=== PATIENT | male | born 1935 | race Caucasian/White ===

== ENCOUNTER 2017-07-20 22:59 | Inpatient (IN) | payer MEDICARE, BC ==
--- NOTE | ~2017-07-20 | DS ---
Discharge Summary [facility] [address] [place]. [address] NAME: MELVINA JOVEL : 31 STATUS : DIS IN PAT#: [id number] AGE: 82 ADM/REG DATE : 07/21/17 MR#: [id number] REPORT SERV DATE: 07/23/17 DICTATED BY: STEVE ORTIZ DATE: 07/22/17 REPORT STATUS : Draft TRANSCRIBED BY: MODL DATE: 07/22/17 ADMISSION DATE: 07/21/2017 DISCHARGE DATE: 07/22/2017 DISCHARGE DIAGNOSES: 1. Weakness and falls most consistent with early stages of dementia. 2. Reported suicidal ideations. 3. Peripheral vascular disease, status post bilateral common femoral endarterectomy and patch angioplasty on 06/29/2017. 4. History of prostate cancer. 5. Possible depression. 6. Medication noncompliance. 7. History of pacer placement. PERTINENT IMAGING PERFORMED THIS ADMISSION: Carotid ultrasound 07/22/2017, impression: No evidence of significant carotid stenosis. Category 1, less than 50% narrowing bilaterally, left vertebral artery is not visualized. Echocardiogram 07/22/2017 found to be normal with the exception of mild diastolic dysfunction. HOSPITAL COURSE: Please refer to the history and physical of this patient by the dictating physician for full history of this patient. Briefly, this gentleman presented to the emergency department at the wishes of his family after having multiple falls at home over the past month as well as decreased appetite and ultimately reports of suicidal ideation. For the patient's weakness and falls, labs were found to be unremarkable and his neuro exam was unremarkable as well with the exception of a mild shuffling gait on exam. B12 and folate were checked and were not found to be the etiology of his weakness and falls. Neurology was consulted given the concerns, and we intended for the patient to undergo MRI of the brain. This was not possible given a noncompatible pacemaker so instead he underwent carotid ultrasound that was unrevealing as well as a transthoracic echocardiogram that was unrevealing. Ultimately, the patient had no desire to be admitted and instead wanted to be discharged home as soon as possible. This is detailed further below. Ultimately, the patient likely would have benefited from physical therapy evaluation though he did not wish to pursue this. Thankfully, the patient has excellent support at home, and with the help of his son and [id number] as well as other family members and they are agreeable to taking their father home where he will have 24-hour supervision in the home. He will also be discharged with home health as well for help around the house. He will follow up with Neurology in the next one to two weeks. This will be scheduled tomorrow, 07/23/2017, as we will be unable to schedule it today. At this time, he may undergo further workup and further evaluation. At this time, Neurology is most concerned for early phases of dementia particularly with parkinsonian features such as Lewy body dementia, but this can be assessed further as an outpatient. Discharge Summary [facility] [address] [place]. [address] NAME: MELVINA JOVEL : 33 STATUS : DIS IN PAT#: [id number] AGE: 82 ADM/REG DATE : 07/21/17 MR#: [id number] REPORT SERV DATE: 07/23/17 DICTATED BY: STEVE ORTIZ DATE: 07/22/17 REPORT STATUS : Draft TRANSCRIBED BY: WALT DATE: 07/22/17 Upon the son's arrival to the hospital on 07/21/2017, he did report to me that the patient had expressed some suicidal ideation to both the son and a few other family members. He had specifically said that if he were ever paralyzed and unable to walk then he would shoot himself. The patient does have multiple guns at home and so obviously we were quite concerned about this. When confronted, the patient adamantly denied any suicidal ideation but did instead say in front of myself, "I have no intent of hurting myself but I will hurt you directed to his son." Given these findings, he was placed on suicide precautions, and Psychiatry was consulted. Unfortunately, we have no psychiatry covered over the weekend or Sunday. Given this lack of coverage and given the findings during this discussion, I did elect to invoke CON for 24 hours while we sorted this out further given the patient's desire to be discharged no matter what. On 07/22/2017, the patient was found to be much more agreeable, but again completely denied any suicidal ideations. His family reported back and were still very supportive and felt much more comfortable with the potential of him going home today given the improvement in his behavior. He never required any sort of physical restraints or medical restraints while admitted and was cooperative. Given the fact that we were concerned for possibly early dementia, there was no really medical reason to keep him in the hospital further. Case Management was crucial in conduction of family meeting with the patient and his son and his [id number] and a safety plan was developed. The patient was provided with a suicide hotline D as well as home health as mentioned before for home services as well as the patient did state that he was agreeable to staying with his family including his son, and his son has assured us that his father will follow up in all of his appointments. This contract safety plan was discussed with the family and everyone agreed with this plan. Of note, I did speak with the son personally as well about all of this plan and he did tell me that last evening when he went home, he was sure to lock away all his father's guns and actually took them out of his father's house. Given the safety plan and the extensive measures we have taken to ensure his safety at home and given his extremely supportive family at home, I do feel that he is safe for discharge home today with a safety plan and therefore will be discharged. There is possibly a component of depression with Mr. Jovel as he has reported decreased appetite and fatigue over the past month. He had also reported some trouble sleeping so we would start trazodone, and I have increased this to 75 mg b.i.d. on discharge which of course can be titrated up as necessary. The rest of the patient's medical problems were stable and were largely not addressed during this admission with the exception of continuation of his home medications. DISCHARGE MEDICATIONS: Aspirin 81 mg p.o. daily, 40 mg p.o. atorvastatin at bedtime, 40 mg of omeprazole p.o. daily, vitamin B12 1000 mcg p.o. daily, 75 mg of trazodone p.o. b.i.d., ferrous gluconate 324 mg p.o. twice per day, gabapentin 100 mg p.o. twice per day, Flonase p.r.n., and guaifenesin 400 mg p.o. daily p.o. b.i.d. p.r.n. for nasal congestion. At least 50 minutes were spent coordinating the discharge of this patient today. AKB/MODL Discharge Summary [facility] [address] [place]. [address] NAME: MELVINA JOVEL : 33 STATUS : DIS IN PAT#: [id number] AGE: 82 ADM/REG DATE : 07/21/17 MR#: [id number] REPORT SERV DATE: 07/23/17 DICTATED BY: STEVE ORTIZ DATE: 07/22/17 REPORT STATUS : Draft TRANSCRIBED BY: MODL DATE: 07/22/17 Steve Ortiz MD / [id number] CC: MD TANESHA Viveros ALANA
--- NOTE | ~2017-07-20 | HP ---
History And Physical [facility] [id number] [place]. [address] NAME: MELVINA MORRIS : 33 STATUS : ADM IN PAT#: [id number] AGE: 82 ADM/REG DATE : 07/21/17 MR#: [id number] REPORT SERV DATE: 07/21/17 DICTATED BY: NEVAEH ROLLINS DATE: 07/21/17 REPORT STATUS : Draft TRANSCRIBED BY: MODJadyn DATE: 07/21/17 DATE OF ADMISSION: 07/21/2017 CHIEF COMPLAINT: Weakness. HISTORY OF PRESENT ILLNESS: The patient is an 82-year-old white male who lives alone. He has fallen several times in the past week and a half. His house has also been quite . He has not taken his medications in the last several weeks. He had a bilateral common femoral endarterectomy and patch angioplasty done on 06/29/2017, but his son has noticed a decline in his ambulatory status for the past 2 or 3 months. He has been progressively weak and he has especially had trouble getting up out of a chair. The patient was previously quite active. He would even mow in the neighbor's lawn and his own lawn. He apparently has 3 acres, but he has not been able to do this lately. When I saw the patient here, he just wanted a sedative, so he could sleep. The patient does snore quite loudly and the son is certain he has sleep apnea. The son brought him in for evaluation over the patient's protest today. The patient does have chronic urinary incontinence after surgery for prostate cancer quite a while ago. PAST MEDICAL HISTORY: 1. Peripheral vascular disease with recent bilateral common femoral endarterectomy, patch angioplasty 06/29/2017. 2. Pacemaker surgery. 3. Hypertension. 4. Prostate cancer with prostatectomy in the distant past. He has had sinus surgery and back surgery. SOCIAL HISTORY: He quit smoking in 1968. He does not drink alcohol. 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 Son is his power of it senior analyst. He is a full code. ALLERGIES: HE HAS NO KNOWN DRUG ALLERGIES. MEDICATIONS: Medications are largely unknown, but he has not taken those in a couple of weeks. FAMILY HISTORY: Mom of stomach and bone cancer. Dad of a CVA. REVIEW OF SYSTEMS: The patient largely refuses to answer most of the questions. PHYSICAL EXAMINATION: VITAL SIGNS: Blood pressure is 152/86, pulse is 90, respirations 20, O2 saturation is 95% on room air. CONSTITUTIONAL: He is alert and appropriate. PSYCHIATRIC: Oriented x3. His memory seems intact. Affect is somewhat angry. HEENT: Atraumatic and normocephalic. Oral palate without lesion. Eyes: Pupils are reactive, anicteric. History And Physical [facility] [id number] [facility] [place]. [address] NAME: MELVINA MORRIS : 31 STATUS : ADM IN [facility]#: [id number] AGE: 82 ADM/REG DATE : 07/21/17 MR#: [id number] REPORT SERV DATE: 07/21/17 DICTATED BY: NEVAEH ROLLINS DATE: 07/21/17 REPORT STATUS : Draft TRANSCRIBED BY: WALT DATE: 07/21/17 NECK: No adenopathy. Supple. No thyromegaly or masses. RESPIRATORY: Clear to auscultation. No chest wall tenderness. CARDIOVASCULAR: Regular rate and rhythm. He does have a pacemaker. He has a 2 to 3/6 systolic murmur. No carotid or femoral bruits. Distal pulses are somewhat diminished. ABDOMEN: Soft, nontender. Obese. No masses. : Male. He has no obvious urinary retention. He does have obvious urinary incontinence. SKIN: There is no rash or suspicious lesions. NEUROLOGIC: He moves all four extremities. He seems to have good strength in his lower extremities. LYMPHATIC: No adenopathy in the neck, axilla, or femoral region. MUSCULOSKELETAL: He does have good range of motion of his upper and lower extremities. LABORATORY DATA: Head CT is unremarkable. His EKG shows a paced rhythm. White blood cell count 5.6, hemoglobin 10.2, platelet 234. Sodium 134, potassium , BUN 21, creatinine 0.95, glucose 78. Mag 1.5. Urinalysis is unremarkable. IMPRESSION/PLAN: 1. Weakness, unclear etiology. We will ask Neurology to help evaluate the patient. We will also order PT and OT. 2. Peripheral vascular disease. 3. Possible depression. We will order trazodone at bedtime as the patient also has trouble sleeping. 4. Reported untreated obstructive sleep apnea. 5. Frequent falls, may need rehab. MISBAH/WALT Nevaeh Rollins MD / [id number] CC: Keri Chaudhry
--- NOTE | ~2017-07-20 | CN ---
Consultation Report [facility] [address] [place]. [address] NAME: MELVINA MORRIS : 33 STATUS : DIS IN PAT#: [id number] AGE: 82 ADM/REG DATE : 07/21/17 MR#: [id number] REPORT SERV DATE: 07/22/17 DICTATED BY: ELISE IBANEZ DATE: 07/22/17 REPORT STATUS : Draft TRANSCRIBED BY: MODL DATE: 07/22/17 NEUROLOGICAL CONSULTATION EVALUATION DATE OF CONSULTATION: 07/21/2017 REQUESTING PHYSICIAN: Steve Cervantes MD, Hospitalist Team. LOCATION OF THE PATIENT: Room 533. REASON FOR EVALUATION: Generalized weakness, episodes of falling. HISTORY OF PRESENT ILLNESS: This is a pleasant 82-year-old male, who was brought by his family for an evaluation of episodes of falling, generalized weakness, and overall generalized decline. The patient lives alone and it was noted by his family that he has been less attentive to the order in his house, which is out of his character. It is not clear whether the patient has not been taking his medication in the last several weeks. The patient had undergone a common femoral endarterectomy surgery on 06/29/2017. The patient stated that his legs have been weak, which made him feel quite upset since he has always been very active physically. The patient has had history of prostate surgery in the past and has had chronic urinary incontinence for quite a long time. The patient's episodes of falling were described as the patient is progressively having difficulty with his balance. He is currently using a walker. PAST MEDICAL HISTORY: Significant for peripheral vascular disease, recent femoral patch angioplasty and endarterectomy on 06/29/2017, history of pacemaker placement surgery approximately 8 years ago, hypertension?, Borderline diabetes mellitus with peripheral neuropathy, history of prostatectomy for prostate cancer. History of lumbosacral spine surgery. ALLERGIES: NO KNOWN ALLERGIES. MEDICATION: The patient was taking 100 mg of Neurontin two tablets twice a day, multivitamin, and omega-3. No other medications were listed. SOCIAL HISTORY: The patient was a smoker until 1968. There is no history of smoking or alcohol use, otherwise. The patient worked in [employer] from where he retired. The patient lives alone. His several years ago. The patient's daughter was killed in an automobile accident four years ago. The patient has one son, who has power of attorney recruiter. FAMILY HISTORY: Significant history of stomach cancer in his mother, the patient's father had history of coronary artery disease and stroke. REVIEW OF SYSTEMS: Consultation Report [facility] [id number] [place]. [address] NAME: MELVINA MORRIS : 31 STATUS : DIS IN PAT#: [id number] AGE: 82 ADM/REG DATE : 07/21/17 MR#: [id number] REPORT SERV DATE: 07/22/17 DICTATED BY: ELISE IBANEZ DATE: 07/22/17 REPORT STATUS : Draft TRANSCRIBED BY: MODL DATE: 07/22/17 The patient minimized his symptoms, however, more information was provided from his son. The patient has recently had some personality changes and has been quite upset about the disability he encountered following his angioplasty surgery. The patient was having increasing difficulty walking. However, the patient's son noticed that there were a change in the quality of movement and walking. The patient was making smaller steps and they were slightly wide based. The patient also intermittently had right arm and hand tremor. The patient denied chest pain, shortness of breath. Denied actual loss of consciousness. He was not aware of any precipitating factors prior to him falling. The patient attributed following to stumbling. The patient was quite limited in providing information to fill review of systems, however, it appeared that the rest of 14-point review of system was negative except the patient was tested for obstructive sleep apnea. His test was positive, however, the patient was never compliant with use of CPAP. PHYSICAL EXAMINATION: VITAL SIGNS: Show a blood pressure of 147/76, pulse was 96, respirations 18, temperature was 98.2. HEENT: Head and neck examination showed him to be normocephalic. There was no evidence of trauma. Auscultation of the neck showed no evidence of bruits. Eyes exam, sclerae were not icteric. Conjunctiva was pink. ENT exam showed tongue to be midline. Palate elevated symmetrically. Airway was small, Mallampati class 3-4. NECK: Supple. There was no Kernig or Brudzinski. Cervical range of motion did not appear markedly impaired. There was no JVD, no cervical lymphadenopathy noted. CHEST: Symmetrical. LUNGS: Clear. HEART: Condition of heart regular S1 and S2. No S3, S4, gallops are noted. ABDOMEN: Soft, nontender. No organomegaly. EXTREMITIES: Showed no clubbing or cyanosis. There was no peripheral edema. Peripheral pulses were intact. The patient was status post femoral artery bypass surgery. NEUROLOGICAL EXAMINATION: MENTAL STATUS EXAM: The patient was alert, oriented to self, time, and place. Appeared to know the name of the President and few Presidents in succession. The patient for most part was cooperative, however, was determined to go home. An outburst of unusual behavior was observed at the end of the consultation when the patient in a joking way threatened his son to get his jaw dislocated. The patient was angry about the idea of staying in the hospital for a workup of his condition. There was no insight to his condition or situation. The patient's speech was fluent. There was no evidence of aphasia or dysarthria. Distant recent memory limited testing showed the patient to have some difficulty with recent memory. CRANIAL NERVE EXAMINATION: II-XII, visual banks on confrontation were intact. Funduscopic exam showed no evidence of papilledema, hemorrhages, or exudates. Facial sensation, muscles of mastication, muscles of facial expression show no evidence of asymmetry or weakness. The patient was mildly hard of hearing. Lower cranial nerves were intact. Tongue was midline. No atrophy or fibrillations were noted. Palate elevated symmetrically. Sternocleidomastoid and trapezius muscles were symmetrical and normal. MOTOR EXAM: Muscle bulk was decreased diffusely, however, no atrophy or fasciculations were Consultation Report [facility] [id number] [facility] [place]. [address] NAME: MELVINA MORRIS : 31 STATUS : DIS IN PAT#: [id number] AGE: 82 ADM/REG DATE : 07/21/17 MR#: [id number] REPORT SERV DATE: 07/22/17 DICTATED BY: ELISE IBANEZ DATE: 07/22/17 REPORT STATUS : Draft TRANSCRIBED BY: WALT DATE: 07/22/17 noted. A tone was not markedly increased in upper extremities. Lower extremity tone was perhaps slightly increased, but was within normal range for the patient's age. Strength was 5/5 throughout. Deep tendon reflexes were 2+/2 in upper extremities, 1+ at the knees, and 0/2 at both ankles. Babinski signs were not elicitable. SENSORY EXAM: Showed decreased sensation distally in the lower extremities to vibration, light touch and temperature in a stocking distribution. Position sense appeared intact for most part. CEREBELLAR EXAM: [id number] and hxdn-[id number]-bkuz, rapid alternating movements was normal. Gait, the patient had mildly stooped posture, was walking with a walker small steps. Note, there was no oral trauma noted on his examination. No abnormal frontal lobe release signs were noted. LABORATORY STUDIES: CBC with differential showed WBC count of 5.6, RBC is 3.17, hemoglobin 10.2, hematocrit 29.2, MCV 92.1, MCH 32.2, platelet count 234,000 otherwise normal differential. PTT was 26.0, PT/INR was 14.2. Comprehensive metabolic panel showed a sodium of 134, potassium 2.9, chloride 95, carbon dioxide 25, BUN 21, creatinine was 0.95, calcium 8.0, magnesium 1.5, albumin 3.2, total protein 6.3, alkaline phosphatase 119, ALT 22, AST 22, troponins 0.02. CT scan of the head showed ventricular and subarachnoid spaces enlargement appeared symmetrical. Chronic microangiopathic changes were seen in the periventricular region and deep white matter. There was no superimposed chronic or acute CVA or other acute abnormalities. Overall study showed no acute intracranial hemorrhage or other intracranial pathology, chronic microvascular changes. IMPRESSION: 1. 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 Lewy body dementia may have to be considered in view of the patient's recent psychiatric and behavioral abnormalities. 2. Could not exclude multi-infarct state, dementia. The patient's episodes of falling may represent worsening of his balance and several modalities should be considered, and to consider is the patient parkinsonian features that would suggest presence of early Parkinson's disease, which may predispose the patient to episodes of falling. 3. The patient on examination has signs of peripheral neuropathy involving both lower extremities, which undoubtedly contributes to his poor balance. 4. Recent decrease of p.o. intake and possible weight loss and deconditioning, rule out chronic depression. 5. Obstructive sleep apnea with history of noncompliance to CPAP, which actually the patient does not use at all, and may contribute to mental status changes secondary to chronically disturbed sleep or sleep deprivation. 6. History of pacemaker placement rule out recurrent cardiac arrhythmias. Recent history of angioplasty and peripheral vascular disease. Hypertension, the patient has an increased risk of a stroke and recurrent strokes. Recommend to follow with outpatient neurology. The patient was determined to leave the hospital prior to any workup being Consultation Report [facility] [address] [place]. [address] NAME: MELVINA MORRIS : 31 STATUS : DIS IN PAT#: [id number] AGE: 82 ADM/REG DATE : 07/21/17 MR#: [id number] REPORT SERV DATE: 07/22/17 DICTATED BY: ELISE IBANEZ DATE: 07/22/17 REPORT STATUS : Draft TRANSCRIBED BY: WALT DATE: 07/22/17 done. The patient is not a candidate for an MRI since his pacemaker is not compatible with the MRI. Recommend to obtain an EEG. Continue telemetry. Laboratory studies should include serum vitamin B12 and folate level vitamin D levels, and thyroid function profile and TSH. Psychiatry evaluation for depression and questionable suicidal ideation, which were mentioned by the patient's son. Follow with sleep medicine physician to address the use of CPAP and possibly retitration study since patient may have lost great deal of weight since the initial study was done. Outpatient Neurology followup in re-evaluation to monitor for possible Parkinson's dementia complex, Parkinson's disease, and depression in addition to monitor for early normal pressure hydrocephalus, which is considered one of the differential diagnosis and the patient's with gait disturbance and falling. Thank you for allowing me to participate in this patient's care. PIERCE/WALT Elise Ibanez MD / [id number] CC: MD TANESHA Viveros ALANA
[~2017-07-20 22:59] MED LIST: ASAB PO; CO Q-10100 MG PO; FENESIN IR400 MG PO; FERROUS GLUC324 MG PO; LIPITOR40 PO; LYRICA100 MG PO; NEUR100 PO; PCET; PRILOSEC40 MG PO; VITAMIN B 12 PO
[2017-07-21 00:37] LABS: BASOPHILS 0.5 %; BASOPHILS ABSOLUTE 0.03 10/3/uL (0.0-0.16); EOSINOPHILS 1.6 %; EOSINOPHILS ABSOLUTE 0.09 10/3/uL (0.0-0.53); HEMOGLOBIN 10.2 g/dL (13.6-17.8); IMMATURE GRANULOCYTES 0.9 %; IMMATURE GRANULOCYTES ABSOLUTE 0.05 10/3/uL (0.0-0.11); LYMPHOCYTES 24.6 %; LYMPHOCYTES ABSOLUTE 1.38 10/3/uL (0.67-4.30); MEAN CORPUS HGB CONC 34.9 g/dL (32.0-36.0); MEAN CORPUSCULAR HEMOGLOB 32.2 pg (26.0-34.0); MEAN PLATELET VOLUME 8.2 fL (9.2-13.0); MONOCYTES 9.5 %; MONOCYTES ABSOLUTE 0.53 10/3/uL (0.21-1.20); NEUTROPHILS 62.9 %; NEUTROPHILS ABSOLUTE 3.52 10/3/uL (2.02-8.40); PLATELET COUNT 234 10/3/uL (150-400); RBC DISTRIBUTION WIDTH 14.6 % (12.0-16.0); RED CELL COUNT 3.17 10/6/uL (4.7-6.1); WHITE BLOOD CELLS 5.6 10/3/uL (4.5-10.5)
[2017-07-21 00:38] LABS: HEMATOCRIT 29.2 % (40.0-51.0); MANUAL DIFF NO %; MEAN CORPUSCULAR VOLUME 92.1 fL (80-100)
[2017-07-21 00:52] LABS: ALBUMIN 3.2 G/DL (3.5-5.0); CHLORIDE, SERUM 95 MMOL/L (96-112); CREATININE 0.95 MG/DL (0.70-1.30); GFR AFRICAN AMERICAN 85 ML/MIN (>=60); GFR NON AFRICAN AMERICAN 73 ML/MIN (>=60); GLOBULIN 3.1 G/DL (2.5-4.1); GLUCOSE, SERUM 78 MG/DL (60-99); SGOT(AST) 22 U/L (5-40); SGPT(ALT) 22 U/L (5-65); SODIUM, SERUM 134 MMOL/L (135-148); TOTAL BILIRUBIN 0.5 MG/DL (0-1.2); TOTAL PROTEIN 6.3 G/DL (6.0-8.5); TROPONIN I 0.02 NG/ML (<0.05)
[2017-07-21 00:57] LABS: ALKALINE PHOSPHATASE 118 U/L (45-117); BUN (BLOOD UREA NITROGEN) 21 MG/DL (6-23); CO2 (CARBON DIOXIDE) 25 MMOL/L (24-34); INTERNATIONAL NORMAL RATI 1.1 UNITS (-); POTASSIUM, SERUM 2.9 MMOL/L (3.5-5.3); PROTIME (NOT ORD) 14.2 SEC (12.0-14.5)
[2017-07-21 02:02] LABS: ASCORBIC ACID (UR NOT ORDER) NEG (NEG); BILIRUBIN, URINE NEGATIVE (NEG); ER URINALYSIS TAT 0 Hrs 00 Mins; KETONE, URINE NEGATIVE (NEG); LEUKOCYTE ESTERASE(NOT OR NEG (NEG); NITRITE (URINE) NEG (NEG); WBC (NOT ORDERED) (RFLEX) 0 (0-5)
[2017-07-21] MEDS ORDERED: *UNABLE3 (02:54)
[2017-07-21 08:41] LABS: CALCIUM, SERUM 8.5 MG/DL (8.5-10.4); CHLORIDE, SERUM 96 MMOL/L (96-112); CO2 (CARBON DIOXIDE) 27 MMOL/L (24-34); CREATININE 0.78 MG/DL (0.70-1.30); GFR AFRICAN AMERICAN 96 ML/MIN (>=60); GFR NON AFRICAN AMERICAN 83 ML/MIN (>=60); SODIUM, SERUM 131 MMOL/L (135-148)
[2017-07-21 08:42] LABS: BUN (BLOOD UREA NITROGEN) 17 MG/DL (6-23); GLUCOSE, SERUM 124 MG/DL (60-99); POTASSIUM, SERUM 3.5 MMOL/L (3.5-5.3)
[2017-07-21 08:49] LABS: PROSTATIC SPECIFIC AG 0.31 NG/ML (0.0-6.5); ULTRASENSITIVE TSH 0.598 MCIU/ML (0.358-3.740)
[2017-07-21 10:48] LABS: CPK 93 U/L (0-200)
[2017-07-21 10:56] LABS: GLYCOHEMOGLOBIN (HbA1c) 6.1 % (4.7-6.1)
[2017-07-21] MEDS ORDERED: LIPITOR40 PO (12:41)
[2017-07-21] MEDS ORDERED: HALF81 PO (12:42)
[2017-07-21] MEDS ORDERED: CYANO1000T PO (12:42)
[2017-07-21] MEDS ORDERED: PRILOSEC40 MG PO (12:42)
[2017-07-21] MEDS ORDERED: FERROUS GLUC324 MG PO (18:49)
[2017-07-21] MEDS ORDERED: NEUR100 PO (18:49)
[2017-07-21] MEDS ORDERED: FENESIN IR400 MG PO (18:50)
[2017-07-21] MEDS ORDERED: MEGA RED PO (18:50)
[2017-07-21] MEDS ORDERED: FLONASE NAS (18:50)
[2017-07-21 22:16] LABS: FOLATE 16.9 NG/ML (>5.2); FREE T4 1.28 NG/DL (0.76-1.46); ULTRASENSITIVE TSH 1.47 MCIU/ML (0.358-3.740)
[2017-07-22 06:25] LABS: BASOPHILS 0.5 %; BASOPHILS ABSOLUTE 0.02 10/3/uL (0.0-0.16); EOSINOPHILS 2.6 %; EOSINOPHILS ABSOLUTE 0.11 10/3/uL (0.0-0.53); HEMATOCRIT 26.9 % (40.0-51.0); HEMOGLOBIN 9.4 g/dL (13.6-17.8); IMMATURE GRANULOCYTES 0.5 %; IMMATURE GRANULOCYTES ABSOLUTE 0.02 10/3/uL (0.0-0.11); LYMPHOCYTES 23.2 %; LYMPHOCYTES ABSOLUTE 0.97 10/3/uL (0.67-4.30); MEAN CORPUS HGB CONC 34.9 g/dL (32.0-36.0); MEAN CORPUSCULAR HEMOGLOB 33.5 pg (26.0-34.0); MEAN PLATELET VOLUME 8.6 fL (9.2-13.0); MONOCYTES 14.1 %; MONOCYTES ABSOLUTE 0.59 10/3/uL (0.21-1.20); NEUTROPHILS 59.1 %; NEUTROPHILS ABSOLUTE 2.47 10/3/uL (2.02-8.40); PLATELET COUNT 203 10/3/uL (150-400); RBC DISTRIBUTION WIDTH 14.7 % (12.0-16.0); RED CELL COUNT 2.81 10/6/uL (4.7-6.1); WHITE BLOOD CELLS 4.2 10/3/uL (4.5-10.5)
[2017-07-22 06:28] LABS: MANUAL DIFF NO %; MEAN CORPUSCULAR VOLUME 95.7 fL (80-100)
[2017-07-22 07:00] LABS: BUN (BLOOD UREA NITROGEN) 19 MG/DL (6-23); CALCIUM, SERUM 8.3 MG/DL (8.5-10.4); CHLORIDE, SERUM 98 MMOL/L (96-112); CO2 (CARBON DIOXIDE) 28 MMOL/L (24-34); CREATININE 1.01 MG/DL (0.70-1.30); GFR AFRICAN AMERICAN 79 ML/MIN (>=60); GFR NON AFRICAN AMERICAN 68 ML/MIN (>=60); GLUCOSE, SERUM 105 MG/DL (60-99); PHOSPHORUS, SERUM 3.1 MG/DL (2.5-4.5); POTASSIUM, SERUM 3.7 MMOL/L (3.5-5.3); SODIUM, SERUM 135 MMOL/L (135-148)
[2017-07-22 07:46] LABS: PROCALCITONIN <0.05 ng/mL (<0.5)
[2017-07-22] MEDS ORDERED: TRAZ50 PO (18:32)
== END 2017-07-22 19:00 | disposition home health service (06) | DRG 884 ==
LOC: ER 22:59 → 5SO 07-21 04:44
PROVIDERS: Internal Medicine; Specialist
DX: F03.90 Unspecified dementia, unspecified severity, without behavioral disturbance, psychotic disturbance, mood disturbance, and anxiety (principal); G62.9 Polyneuropathy, unspecified; R45.851 Suicidal ideations; R53.1 Weakness; G47.33 Obstructive sleep apnea (adult) (pediatric); I10 Essential (primary) hypertension; I73.9 Peripheral vascular disease, unspecified; Z91.81 History of falling; Z85.46 Personal history of malignant neoplasm of prostate; Z87.891 Personal history of nicotine dependence; Z95.0 Presence of cardiac pacemaker; Z91.14 Patient's other noncompliance with medication regimen
CPT/HCPCS: 70450; 71010; 80048; 80053; 81001; 82140; 82306; 82550; 82607; 82746; 83036; 83735; 84100; 84145; 84153; 84439; 84443; 84481; 84484; 85025; 85610; 85652; 85730; 86592; 93288; 93880; 99285; A9270-GY; C8929; J3475; Q9957